=== PATIENT | male | born 1945 | race Caucasian/White ===

== ENCOUNTER → 2017-05-16 | Outpatient (CLI) | payer OTHER ==
[~2017-05-16] MED LIST: PREDNISONE50 MG PO; PROAIR HFA8.5 GM; PROAIR HFA8.5 GM IH; SPIRIVA INH; SYMBICORT160 MCG/4.; SYMBICORT80 MCG/4.1 INH
== END ==
LOC: RAD 12:02
DX: R05 Cough (principal)

== ENCOUNTER → 2021-02-22 | Outpatient (CLI) | payer OTHER | LOC: RAD 12:19 | PROVIDERS: ATTEND Internal Medicine Pulmonary Disease | DX: J43.1 Panlobular emphysema (principal); R91.1 Solitary pulmonary nodule ==

== ENCOUNTER → 2021-03-23 | Outpatient (CLI) | payer OTHER ==
[2021-03-23 10:25] LABS: BE(vivo) 1.8 mmol/L (-2 to +3); HCO3 26.1 mmol/L (22.0-26.0); PCO2 39.6 mmHg (35.0-45.0); PO2 77.7 mmHg (80.0-100.0); pH 7.436 (7.360-7.450); sO2 95.9 % (92.0-98.0)
== END ==
LOC: CAT 09:12
PROVIDERS: ATTEND Internal Medicine Pulmonary Disease
DX: J43.1 Panlobular emphysema (principal); R91.1 Solitary pulmonary nodule